=== PATIENT | female | born 1985 | race Caucasian/White ===

== ENCOUNTER 2018-05-16 09:18 | Emergency (ER) | payer OTHER ==
[~2018-05-16] VITALS: Ht 175.3 cm; Wt 84.4 kg
[2018-05-16 09:30] VITALS: BP 124/68
--- NOTE | 2018-05-16 10:27 | RAD ---
Three-view right foot and three-view right ankle dated 05/16/2018. No comparison available. CLINICAL INDICATION: Pain after injury. FINDINGS: Three-view right ankle show normal bony alignment. No displaced fracture. No acute osseous or articular abnormality. Talar dome is intact. 3 views of the right foot show normal bony alignment. No displaced fracture. There is shortening of the fourth metatarsal. No periostitis or bone destruction. IMPRESSION: 1. No acute radiographic abnormality. 2. 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 Consider Down syndrome or Miller's syndrome. Pseudohypoparathyroidism, Allbright syndrome or dysplasia are other considerations. Electronically signed by: Karlo Awad MD (05/16/2018 10:24 AM) [facility]
[2018-05-16] MEDS ORDERED: IBUP-1007 PO (10:52)
--- NOTE | 2018-05-16 10:53 | PHYS DOC ---
Past Medical History Past Medical History: No Pertinent History Past Surgical History: Alcohol Use: None Drug Use: None Adult General Chief Complaint Chief Complaint: LOWEREXTREMITY INJURY HPI HPI Patient is a 32 year old female who presents to the ED today complaining of a sharp constant 10 out of 10 right foot and right ankle pain that began yesterday after washer/dryer fell on her foot and ankle, patient states she was moving both washer and dryer when they fell on her. Patient states the pain is worse on flexion and extension of the foot. 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 Patient denies taking anything to relieve her pain. She is in the ED with her caregiver. Review of Systems Review of Systems Constitutional: Denies fever or chills [] Musculoskeletal: Right fourth toe with congenital deformity, no obvious deformity noted on the right foot or ankle. Full passive as well as active range of motion to the right foot ankles and toes. +2 right pedal pulse. Cap refill less than 2 seconds the right toes. Sensation intact to the right foot. Integument: Denies rash or skin lesions [] Neurologic: Denies headache, focal weakness or sensory changes [] All other systems were reviewed and found to be within normal limits, except as documented in this note. Allergies Allergies Allergies Coded Allergies Type Severity Reaction Last Updated Verified latex Allergy Mild Rash 02/04/13 Yes Physical Exam Physical Exam Constitutional: Well developed, well nourished, no acute distress, non-toxic appearance. [] HENT: Normocephalic, atraumatic, bilateral external ears normal, oropharynx moist, no oral exudates, nose normal. [] Eyes: PERRLA, EOMI, conjunctiva normal, no discharge. [] Neck: Normal range of motion, no tenderness, supple, no stridor. [] Cardiovascular:Heart rate regular rhythm, no murmur [] Lungs & Thorax: Bilateral breath sounds clear to auscultation [] Abdomen: Bowel sounds normal, soft, no tenderness, no masses, no pulsatile masses. [] Skin: Warm, dry, no erythema, no rash. [] Back: No tenderness, no CVA tenderness. [] Extremities: No tenderness, no cyanosis, no clubbing, ROM intact, no edema. [] Neurologic: Alert and oriented X 3, normal motor function, normal sensory function, no focal deficits noted. [] Psychologic: Affect normal, judgement normal, mood normal. [] Current Patient Data Vital Signs Vital Signs Date Time Temp Pulse Resp B/P (MAP) Pulse Ox O2 Delivery O2 Flow Rate FiO2 05/16/18 09:30 98.6 80 18 124/68 (86) 99 Room Air 98.6 EKG EKG [] Radiology/Procedures Radiology/Procedures []PROCEDURE: ANKLE RIGHT 3V Three-view right foot and three-view right ankle dated 05/16/2018. No comparison available. CLINICAL INDICATION: Pain after injury. FINDINGS: Three-view right ankle show normal bony alignment. No displaced fracture. No acute osseous or articular abnormality. Talar dome is intact. 3 views of the right foot show normal bony alignment. No displaced fracture. There is shortening of the fourth metatarsal. No periostitis or bone destruction. IMPRESSION: 1. No acute radiographic abnormality. 2. 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 Consider Down syndrome or Miller's syndrome. Pseudohypoparathyroidism, Allbright syndrome or dysplasia are other considerations. Electronically signed by: Karlo Awad MD (05/16/2018 10:24 AM) [facility] DICTATED and SIGNED BY: KARLO AWAD MD DATE: 05/16/18 1024 Course & Med Decision Making Course & Med Decision Making Pertinent Labs and Imaging studies reviewed. (See chart for details) This is a 32-year-old female patient presenting to the ED today with right foot/ ankle contusion after washing and drawer stress trying to move yesterday fell on her foot and ankle. Right foot and right ankle x-rays interpreted by radiologist were negative for any acute findings. Patient was discharged to home. Ice elevation encouraged. Tylenol or Motrin for pain. Follow-up with orthopedic doctor in one week if symptoms continue. Dragon Disclaimer Dragon Disclaimer This electronic medical record was generated, in whole or in part, using a voice recognition dictation system. Departure Departure Impression: Primary Impression: Contusion of right foot Additional Impression: Contusion of right ankle Disposition: HOME, SELF-CARE Condition: STABLE Referrals: VIVIAN HERNANDEZ MD (PCP) YAEL SHANKS MD Follow-up in 1-2 weeks Patient Instructions: Contusion, [id number] Additional Instructions: You were evaluated in the emergency room for right foot and right ankle pain. Your X-rays of the right foot and ankle were negative for any acute findings. Take Tylenol/Motrin for pain, ice elevate the extremity. Follow-up with your own doctor or the provided orthopedic doctor in 1-2 weeks if pain persist. Scripts Ibuprofen (IBUPROFEN) 600 Mg Tablet 600 MG PO PRN Q6HRS PRN for INFLAMMATION, #20 TAB Prov: BOLIVAR EVERETT APRN 05/16/18 Problem Qualifiers Primary Impression: Contusion of right foot Encounter type: initial encounter Qualified Codes: S90.31XA - Contusion of right foot, initial encounter Additional Impression: Contusion of right ankle Encounter type: initial encounter Qualified Codes: S90.01XA - Contusion of right ankle, initial encounter BOLIVAR EVERETT APRN May 16, 2018 10:52
== END 2018-05-16 11:03 | disposition home or self-care (01) ==
LOC: ER 09:18
DX: S90.01XA Contusion of right ankle, initial encounter (principal); S90.31XA Contusion of right foot, initial encounter; Z91.040 Latex allergy status; W20.8XXA Other cause of strike by thrown, projected or falling object, initial encounter; Y93.89 Activity, other specified; Y92.89 Other specified places as the place of occurrence of the external cause; Y99.8 Other external cause status
CPT/HCPCS: 73610; 73630; 99283

== ENCOUNTER 2018-06-27 12:21 | Emergency (ER) | payer OTHER ==
[~2018-06-27] VITALS: Ht 160 cm; Wt 82.6 kg
[~2018-06-27 12:21] MED LIST: IBUP-1007 PO
[2018-06-27 12:51] VITALS: BP 111/73
[2018-06-27] MEDS ORDERED: DIPH25CA58 PO (13:26)
--- NOTE | 2018-06-27 13:26 | PHYS DOC ---
Past Medical History Past Medical History: Other Additional Past Medical Histor: seasonal allergies (BASHIR FOY APRN) Past Surgical History: (BASHIR FOY APRN) Alcohol Use: None Drug Use: None (BASHIR FOY APRN) Adult General Chief Complaint Chief Complaint: OTHER COMPLAINTS [facility] Patient is a 32 year old female presents for evaluation of sneezing since driving past a house that was having the grass cut approximately 3 hours ago. She reports took a Zyrtec 1 hour ago but continues to sneeze. She denies shortness of breath or other concerns. She noticed that she has a history of seasonal allergies, especially to grass. (BASHIR FOY APRN) Review of Systems Review of Systems Constitutional: Denies fever or chills [] Eyes: Denies change in visual acuity, redness, or eye pain [] HENT: Denies nasal congestion or sore throat, +SNEEZING [] Respiratory: Denies cough or shortness of breath [] Cardiovascular: No additional information not addressed in HPI [] GI: Denies abdominal pain, nausea, vomiting, bloody stools or diarrhea [] : Denies dysuria or hematuria [] Musculoskeletal: Denies back pain or joint pain [] Integument: Denies rash or skin lesions [] Neurologic: Denies headache, focal weakness or sensory changes [] Endocrine: Denies polyuria or polydipsia [] All other systems were reviewed and found to be within normal limits, except as documented in this note. (BASHIR FOY APRN) Allergies Allergies Allergies Coded Allergies Type Severity Reaction Last Updated Verified latex Allergy Mild Rash 02/04/13 Yes (KEL LOUIE MD) Physical Exam Physical Exam Constitutional: Well developed, well nourished, no acute distress, non-toxic appearance. [] HENT: Normocephalic, atraumatic, bilateral external ears normal, oropharynx moist, no oral exudates, nose normal. [] Eyes: PERRLA, EOMI, conjunctiva normal, no discharge. [] Cardiovascular:Heart rate regular rhythm, no murmur [] Lungs & Thorax: Bilateral breath sounds clear to auscultation [] Skin: Warm, dry, no erythema, no rash. [] Neurologic: Alert and oriented X 3, normal motor function, normal sensory function, no focal deficits noted. [] Psychologic: Affect normal, judgement normal, mood normal. [] (BASHIR FOY APRN) Current Patient Data Vital Signs Vital Signs Date Time Temp Pulse Resp B/P (MAP) Pulse Ox O2 Delivery O2 Flow Rate FiO2 06/27/18 12:51 97.7 72 18 111/73 (86) 100 Room Air 97.7 (KEL LOUIE MD) EKG EKG [] (BASHIR FOY APRN) Radiology/Procedures Radiology/Procedures [] (BASHIR FOY APRN) Course & Med Decision Making Course & Med Decision Making Pertinent Labs and Imaging studies reviewed. (See chart for details) [Recommend taking Benadryl, continue Zyrtec daily for seasonal allergies. Follow-up with primary care doctor in 2-3 days.] (BASHIR FOY APRN) Course & Med Decision Making I was available for consultation regarding this patient's. I was not involved and I did not examine the pt unless otherwise specified. (KEL LOUIE MD) Dragon Disclaimer Dragon Disclaimer This electronic medical record was generated, in whole or in part, using a voice recognition dictation system. (BASHIR FOY APRN) Departure Departure Impression: Primary Impression: Allergic rhinitis Disposition: 01 HOME, SELF-CARE Condition: STABLE Referrals: VIVIAN HERNANDEZ MD (PCP) Patient Instructions: Allergic Rhinitis Scripts Diphenhydramine Hcl (BENADRYL) 25 Mg Capsule 25 MG PO Q8HRS PRN for ALLERGIES, #10 CAP 0 Refills Prov: BASHIR FOY APRN 06/27/18 Problem Qualifiers Primary Impression: Allergic rhinitis Allergic rhinitis trigger: other Allergic rhinitis seasonality: seasonal Qualified Codes: J30.89 - Other allergic rhinitis BASHIR FOY APRN Jun 27, 2018 13:26 KEL LOUIE MD Jun 27, 2018 17:29
== END 2018-06-27 13:38 | disposition home or self-care (01) ==
LOC: ER 12:21
DX: J30.89 Other allergic rhinitis (principal); Z91.040 Latex allergy status
CPT/HCPCS: 99283

== ENCOUNTER 2018-07-03 13:25 | Emergency (ER) | payer OTHER ==
[~2018-07-03] VITALS: Ht 160 cm; Wt 80.1 kg
[~2018-07-03 13:25] MED LIST changes: +DIPH25CA58 PO
[2018-07-03 13:58] VITALS: BP 126/61
[2018-07-03] MEDS ORDERED: EPIPEN 2-P0.3 MG/0.3 IJ (13:59)
[2018-07-03] MEDS ORDERED: PRED50TA PO (13:59)
[2018-07-03] MEDS ORDERED: predniSONE 10 MG TABLET PO ONE (14:00)
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
== END 2018-07-03 14:29 | disposition home or self-care (01) ==
LOC: ER 13:25
DX: T78.49XA Other allergy, initial encounter (principal); Z91.013 Allergy to seafood; Z91.040 Latex allergy status
CPT/HCPCS: 99284; J7512

== ENCOUNTER 2018-08-02 09:36 | Emergency (ER) | payer OTHER ==
[~2018-08-02] VITALS: Ht 167.6 cm; Wt 78.0 kg
[~2018-08-02 09:36] MED LIST changes: +EPIPEN 2-P0.3 MG/0.3 IJ; +PRED50TA PO
[2018-08-02] MEDS ORDERED: IV NORMAL SALINE 1000ML BAG 1,000 ML IV SCH (10:00)
--- NOTE | 2018-08-02 10:07 | PHYS DOC ---
Past Medical History Past Medical History: Other Additional Past Medical Histor: hypoglycemia Past Surgical History: Alcohol Use: None Drug Use: None Adult General Chief Complaint Chief Complaint: ABDOMINAL PAIN HPI HPI Patient is a 32-year-old female who presents to the emergency department for evaluation of left flank and lower abdominal pain, which has been present for the past 3-4 days. She has had nausea, and vomited once this morning, without hematemesis. She has not had any diarrhea, dysuria, hematuria, vaginal bleeding, or discharge. She denies possibility of STD, and declines evaluation for such today. She has not had any fevers or chills. There are no alleviating, or exa cerbating factors to her symptoms otherwise. Review of Systems Review of Systems Constitutional: Denies fever or chills [] Eyes: Denies change in visual acuity, redness, or eye pain [] HENT: Denies nasal congestion or sore throat [] Respiratory: Denies cough or shortness of breath [] Cardiovascular: The patient denies any shortness of breath, chest pain, pa lpitations, or orthopnea [] GI:No additional information not addressed in HPI [] : Denies dysuria or hematuria [] Musculoskeletal: Denies back pain or joint pain [] Integument: Denies rash or skin lesions [] Neurologic: Denies headache, focal weakness or sensory changes [] Endocrine: Denies polyuria or polydipsia [] All other systems were reviewed and found to be within normal limits, except as documented in this note. Current Medications Current Medications Current Medications Medications (Trade) Dose Ordered Sig/Norman Start Time Stop Time Status Last Admin Dose Admin Ketorolac Tromethamine (Toradol 30mg Vial) 30 mg 1X ONCE 08/02/18 10:30 08/02/18 10:31 DC 08/02/18 10:29 30 MG Ondansetron HCl (Zofran) 4 mg 1X ONCE 08/02/18 10:30 08/02/18 10:31 DC 08/02/18 10:29 4 MG Sodium Chloride 1,000 ml @ 1,000 mls/hr Q1H 08/02/18 10:00 08/02/18 10:59 DC 08/02/18 10:29 1,000 MLS/HR Allergies Allergies Allergies Coded Allergies Type Severity Reaction Last Updated Verified shellfish derived Allergy Severe anaphylaxis 07/03/18 Yes latex Allergy Intermediate Rash 07/03/18 Yes Physical Exam Physical Exam PHYSICAL EXAM: CONSTITUTIONAL: Well developed, well nourished HEAD: normocephalic, atraumatic EENT: PERRL, EOMI. Conjunctivae normal color, sclerae non-icteric; moist mucous membranes. NECK: Supple, non-tender; no meningismus. LUNGS: Lungs CTA, breathing even and unlabored. Normal air movement. HEART: Regular rate and rhythm, no murmur CHEST: No deformity; non-tender ABDOMEN: The abdomen is soft, there is mild tenderness to palpation in the abdomen on the left mid and lower abdomen, without rebound or guarding. The remainder the abdomen is soft and non-tender, no masses or bruits. EXTREM: Normal ROM; no deformity, no calf tenderness. Normal pulses palpable in all extremities. There is no pedal edema. SKIN: No rash; no diaphoresis NEURO: Alert; normal speech and cognition; CN's grossly intact; strength grossly intact without focal deficit. BACK: There is moderate left-sided CVA TTP. Current Patient Data Vital Signs Vital Signs Date Time Temp Pulse Resp B/P (MAP) Pulse Ox O2 Delivery O2 Flow Rate FiO2 08/02/18 11:55 79 16 113/62 (79) 100 Room Air 08/02/18 10:51 98.9 98.9 Lab Values Laboratory Tests Test 08/02/18 10:15 08/02/18 11:34 White Blood Count 7.5 x10^3/uL (4.0-11.0) Red Blood Count 3.88 x10^6/uL (3.50-5.40) Hemoglobin 8.9 g/dL (12.0-15.5) L Hematocrit 28.3 % (36.0-47.0) L Mean Corpuscular Volume 73 fL (79-100) L Mean Corpuscular Hemoglobin 23 pg (25-35) L Mean Corpuscular Hemoglobin Concent 32 g/dL (31-37) Red Cell Distribution Width 18.5 % (11.5-14.5) H Platelet Count 208 x10^3/uL (140-400) Neutrophils (%) (Auto) 79 % (31-73) H Lymphocytes (%) (Auto) 11 % (24-48) L Monocytes (%) (Auto) 8 % (0-9) Eosinophils (%) (Auto) 1 % (0-3) Basophils (%) (Auto) 1 % (0-3) Neutrophils # (Auto) 5.9 x10^3uL (1.8-7.7) Lymphocytes # (Auto) 0.9 x10^3/uL (1.0-4.8) L Monocytes # (Auto) 0.6 x10^3/uL (0.0-1.1) Eosinophils # (Auto) 0.0 x10^3/uL (0.0-0.7) Basophils # (Auto) 0.1 x10^3/uL (0.0-0.2) Urine Color Yellow Urine Clarity Clear Urine pH 8.0 Urine Specific Sibley 1.010 Urine Protein Negative mg/dL (NEG-TRACE) Urine Glucose (UA) Negative mg/dL (NEG) Urine Ketones (Stick) Negative mg/dL (NEG) Urine Blood Negative (NEG) Urine Nitrite Negative (NEG) Urine Bilirubin Negative (NEG) Urine Urobilinogen Dipstick 1.0 mg/dL (0.2 mg/dL) Urine Leukocyte Esterase Moderate (NEG) Urine RBC 0 /HPF (0-2) Urine WBC Occ /HPF (0-4) Urine Bacteria 0 /HPF (0-FEW) Sodium Level 140 mmol/L (136-145) Potassium Level 3.7 mmol/L (3.5-5.1) Chloride Level 103 mmol/L (98-107) Carbon Dioxide Level 23 mmol/L (21-32) Anion Gap 14 (6-14) Blood Urea Nitrogen 8 mg/dL (7-20) Creatinine 0.9 mg/dL (0.6-1.0) Estimated GFR (Cockcroft-Gault) 73.0 BUN/Creatinine Ratio 9 (6-20) Glucose Level 97 mg/dL (70-99) Calcium Level 9.2 mg/dL (8.5-10.1) Total Bilirubin 0.3 mg/dL (0.2-1.0) Aspartate Amino Transferase (AST) 14 U/L (15-37) L Alanine Aminotransferase (ALT) 19 U/L (14-59) Alkaline Phosphatase 75 U/L (46-116) Total Protein 7.9 g/dL (6.4-8.2) Albumin 3.6 g/dL (3.4-5.0) Albumin/Globulin Ratio 0.8 (1.0-1.7) L Lipase 73 U/L (73-393) Urine Test Negative (NEG) Laboratory Tests 08/02/18 10:15 Laboratory Tests 08/02/18 10:15 EKG EKG [] Radiology/Procedures Radiology/Procedures PROCEDURE: CT ABDOMEN PELVIS WO CONTRAST CT of the abdomen and pelvis without contrast, 08/02/2018: HISTORY: Left flank and lower abdominal pain Noncontrast scans were obtained utilizing the renal stone protocol. No intrarenal calculi are identified. The renal collecting systems and ureters are not dilated. No ureteral calculus is identified. The urinary bladder is unremarkable. The unopacified liver shows no abnormality. No gallbladder abnormality is detected. The pancreas is unremarkable. The spleen shows no abnormality. The abdominal aorta is unremarkable. No abdominal or pelvic adenopathy is seen. Surgical clips in the pelvis are most likely secondary to tubal ligation surgery. No abnormal pelvic mass or fluid collection is seen. The bowel loops are not dilated. The appendix is visualized and shows no abnormality. No free fluid or free air is evident in the abdomen or pelvis. IMPRESSION: No urinary tract calculi are identified. [] Course & Med Decision Making Course & Med Decision Making Pertinent Labs and Imaging studies reviewed. (See chart for details) []12:50 PM:Patient remains stable. I discussed test results, the need for close follow-up, and return precautions. The patient continues to decline pelvic exam I did discuss importance of [facility]IPMAN follow-up if she has persistent pain for pelvic evaluation, although does not appear that this is likely the source of the patient's symptoms. She states she does do a lot of heavy lifting at work and she does think her back pain might be related to musculoskeletal causes and we will try therapeutic trial of NSAIDs and muscle relaxer Spencer Disclaimer [place]acon Disclaimer This electronic medical record was generated, in whole or in part, using a voice recognition dictation system. Departure Departure Impression: Primary Impression: Abdominal pain Additional Impression: Low back pain Disposition: 01 HOME, SELF-CARE Condition: STABLE Referrals: VIVIAN HERNANDEZ MD (PCP) Patient Instructions: Abdominal Pain, Back Pain, Adult Additional Instructions: Applying a heating pad to the affected area may help improve your symptoms. The prescribed medications may cause drowsiness-use caution while taking. Scripts Diclofenac Sodium (DICLOFENAC SODIUM) 50 Mg Tablet.dr 1 TAB PO BID, #20 TAB 0 Refills Prov: CHRISTINE MAGALLON MD 08/02/18 Cyclobenzaprine Hcl (CYCLOBENZAPRINE HCL) 10 Mg Tablet 1 TAB PO TID PRN for PAIN, #30 TAB Prov: CHRISTINE MAGALLON MD 08/02/18 Problem Qualifiers CHRISTINE MAGALLON MD August 02, 2018 10:07
[2018-08-02] MEDS ORDERED: ONDANSETRON PF 4 MG/2 ML VIAL. IV ONE (10:30)
[2018-08-02] MEDS ORDERED: KETOROLAC 30 MG/ML VIAL. IV ONE (10:30)
[2018-08-02 10:34] LABS: BILIRUBIN,URINE NEGATIVE (NEG); CLARITY,URINE CLEAR; COLOR,URINE YELLOW; NITRITE,URINE NEGATIVE (NEG); PROTEIN,URINE NEGATIVE (NEG-TRACE)
[2018-08-02 10:39] LABS: BASO # 0.1 x10^3/uL (0.0-0.2); BASO % 1 % (0-3); EOS % 1 % (0-3); HEMATOCRIT 28.3 % (36.0-47.0); HEMOGLOBIN 8.9 g/dL (12.0-15.5); LYMPH # 0.9 x10^3/uL (1.0-4.8); LYMPH % 11 % (24-48); MEAN CORPUSCULAR HEMOGLOBIN 23 pg (25-35); MEAN CORPUSCULAR HGB CONC 32 g/dL (31-37); MEAN CORPUSCULAR VOLUME 73 fL (79-100); MONO # 0.6 x10^3/uL (0.0-1.1); MONO % 8 % (0-9); NEUT # 5.9 x10^3uL (1.8-7.7); NEUT % 79 % (31-73); PLATELET COUNT 208 x10^3/uL (140-400); RED BLOOD COUNT 3.88 x10^6/uL (3.50-5.40); RED CELL DISTRIBUTION WIDTH 18.5 % (11.5-14.5); WHITE BLOOD COUNT 7.5 x10^3/uL (4.0-11.0)
[2018-08-02 10:41] LABS: BACTERIA,URINE 0 /HPF (0-FEW); RBC,URINE 0 /HPF (0-2); WBC,URINE OCC /HPF (0-4)
[2018-08-02 10:43] LABS: CALCIUM 9.2 mg/dL (8.5-10.1); CREATININE 0.9 mg/dL (0.6-1.0); POTASSIUM 3.7 mmol/L (3.5-5.1)
[2018-08-02 10:48] LABS: ALBUMIN 3.6 g/dL (3.4-5.0); ALBUMIN/GLOBULIN RATIO 0.8 (1.0-1.7); TOTAL BILIRUBIN 0.3 mg/dL (0.2-1.0); TOTAL PROTEIN 7.9 g/dL (6.4-8.2)
[2018-08-02 11:40] LABS: U PREG PATIENT NEGATIVE (NEG)
--- NOTE | 2018-08-02 12:33 | RAD ---
CT of the abdomen and pelvis without contrast, 08/02/2018: HISTORY: Left flank and lower abdominal pain Noncontrast scans were obtained utilizing the renal stone protocol. No intrarenal calculi are identified. The renal collecting systems and ureters are not dilated. No ureteral calculus is identified. The urinary bladder is unremarkable. The unopacified liver shows no abnormality. No gallbladder abnormality is detected. The pancreas is unremarkable. The spleen shows no abnormality. The abdominal aorta is unremarkable. No abdominal or pelvic adenopathy is seen. Surgical clips in the pelvis are most likely secondary to tubal ligation surgery. No abnormal pelvic mass or fluid collection is seen. The bowel loops are not dilated. The appendix is visualized and shows no abnormality. No free fluid or free air is evident in the abdomen or pelvis. IMPRESSION: No urinary tract calculi are identified. PQRS Compliance Statement: One or more of the following individualized dose reduction techniques were utilized for this examination: 1. Automated exposure control 2. Adjustment of the mA and/or kV according to patient size 3. Use of iterative reconstruction technique Electronically signed by: Juvenal Wyatt MD (08/02/2018 12:30 PM) [facility]
[2018-08-02 12:50] VITALS: BP 110/74
[2018-08-02] MEDS ORDERED: DICL50TA4 PO (12:53)
[2018-08-02] MEDS ORDERED: CYCL10TA2 PO (12:53)
--- NOTE | 2018-08-04 10:09 | NUR ---
Late entry made to Medical Record. IV Stop time transcribed from eMAR to IV spreadsheet
== END 2018-08-02 13:15 | disposition home or self-care (01) ==
LOC: ER 09:36
DX: R10.32 Left lower quadrant pain (principal); M54.5 Low back pain; R11.2 Nausea with vomiting, unspecified; Z91.040 Latex allergy status; Z91.013 Allergy to seafood
CPT/HCPCS: 36415; 74176; 80053; 81001; 81025; 83690; 85025; 96361; 96374; 96375; 99285; J1885; J2405; J7030

== ENCOUNTER 2019-01-26 12:14 | Emergency (ER) | payer OTHER ==
[~2019-01-26] VITALS: Ht 157.5 cm; Wt 84.8 kg
[~2019-01-26 12:14] MED LIST changes: +CYCL10TA2 PO; +DICL50TA4 PO
[2019-01-26 13:04] VITALS: BP 140/82
[2019-01-26] MEDS ORDERED: ORPH100T PO (13:41)
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
== END 2019-01-26 13:48 | disposition home or self-care (01) ==
LOC: ER 12:14
DX: M25.511 Pain in right shoulder (principal); G89.11 Acute pain due to trauma; V43.63XA Car passenger injured in collision with pick-up truck in traffic accident, initial encounter; Y93.89 Activity, other specified; Y92.415 Exit ramp or entrance ramp of street or highway as the place of occurrence of the external cause; Y99.8 Other external cause status
CPT/HCPCS: 81025; 99283

== ENCOUNTER 2020-02-20 08:58 | Emergency (ER) | payer OTHER ==
[~2020-02-20] VITALS: Ht 165.1 cm; Wt 80.0 kg
[~2020-02-20 08:58] MED LIST changes: +ORPH100T PO
[2020-02-20] MEDS ORDERED: FAMOTIDINE 20 MG/2 ML VIAL IVP ONE (09:00)
[2020-02-20] MEDS ORDERED: DEXAMETHASONE SOD PHOS 4 MG/ML VIAL IVP ONE (09:00)
[2020-02-20] MEDS ORDERED: diphenhydrAMINE 50 MG/ML VIAL IVP ONE (09:00)
[2020-02-20] MEDS ORDERED: PRED20TA PO (09:03)
[2020-02-20] MEDS ORDERED: DIPH25CA58 PO (09:03)
[2020-02-20] MEDS ORDERED: FAMO-63 PO (09:03)
--- NOTE | 2020-02-20 09:03 | PHYS DOC ---
Past Medical History Past Medical History: No Pertinent History, Other Additional Past Medical Histor: hypoglycemia Past Surgical History: Smoking Status: Never Smoker Alcohol Use: None Drug Use: None General Adult EDM: Chief Complaint: Itching HPI: HPI: Patient is a 34 year old female who is brought to the ED by EMS for itching and possible allergic reaction. Pt reports she ate a pumpkin spice donut this morning at work after which she immediately experienced itching starting at her neck that spread to her face, arms, and now legs. She has not previously had any reactions to pumpkin spice. She was given 25mg Benadryl by EMS in route to the hospital but reports no improvement with itching on arrival. She admits to feeling increased anxiety, with associated chest pressure, but denies shortness of breath. Her only known allergies are latex and shellfish. Review of Systems: Review of Systems: Constitutional: Denies fever or chills Eyes: Denies redness or eye pain HENT: Denies nasal congestion or sore throat Respiratory: Denies cough or shortness of breath Cardiovascular: +chest pain. Denies palpitations GI: Denies abdominal pain, nausea, or vomiting : Denies dysuria or hematuria Musculoskeletal: Denies back pain or joint pain Integument: +Itching. Denies skin lesions Neurologic: Denies headache, focal weakness or sensory changes. Complete systems were reviewed and found to be within normal limits, except as documented in this note. Allergies: Allergies: Allergies Coded Allergies Type Severity Reaction Last Updated Verified shellfish derived Allergy Severe anaphylaxis 07/03/18 Yes latex Allergy Intermediate Rash 07/03/18 Yes Physical Exam: PE: Constitutional: Well developed, non-toxic appearance, tearful, anxious HENT: Normocephalic, atraumatic, no tongue swelling or airway compromise Neck: Normal range of motion, no tenderness, supple Lungs & Thorax: No respiratory distress, equal chest rise and fall, no stridor Abdomen: Soft, no tenderness Skin: Warm, dry, no erythema, excoriations on neck and forearms. Psychologic: Affect labile, judgment normal, anxious Course & Med Decision Making: Course & Med Decision Making Pt is a previously healthy 34 year old female who was brought to the ED via EMS for pruritus after consuming a pumpkin spice donut. Likely allergic reaction to pumpkin spice. No airway compromise, stridor, or respiratory distress on physical exam. Additional 25mg of Benadryl given to previous 25mg in route (total of 50mg Benadryl) for itching and allergies. Dexamethasone given to help calm inflammation and itching. Patient stable for discharge with outpatient follow-up with PCP. Discussed findings and plan with patient, who acknowledges understanding and agreement. Spencer Disclaimer: Spencer Disclaimer: This electronic medical record was generated, in whole or in part, using a voice recognition dictation system. Departure Departure Impression: Primary Impression: Allergic reaction Qualified Codes: T78.40XA - Allergy, unspecified, initial encounter Disposition: DC HOME SELF CARE/HOMELESS Condition: STABLE Referrals: NO PCP (PCP) Patient Instructions: Food Allergy, [id number] Scripts Diphenhydramine Hcl (BENADRYL) 25 Mg Capsule 25 MG PO Q4-6HRS PRN for ITCHING, #30 CAP Prov: CLARITZA MAHARAJ DO 02/20/20 Famotidine (PEPCID) 20 Mg Tablet 20 MG PO BID for 5 Days, #10 TAB Prov: CLARITZA MAHARAJ DO 02/20/20 Prednisone (PREDNISONE) 20 Mg Tablet 2 TAB PO DAILY, #8 TAB Start this prescription tomorrow, 02/21/2020 Prov: CLARITZA MAHARAJ DO 02/20/20 CLARITZA MAHARAJ DO Feb 20, 2020 09:03
[2020-02-20 09:55] VITALS: BP 112/70
== END 2020-02-20 10:30 | disposition home or self-care (01) ==
LOC: ER 08:58
DX: T78.1XXA Other adverse food reactions, not elsewhere classified, initial encounter (principal); L29.8 Other pruritus; Z91.040 Latex allergy status; Z91.013 Allergy to seafood; X58.XXXA Exposure to other specified factors, initial encounter
CPT/HCPCS: 96374; 96375; 99284; J1100; J1200; J3490

== ENCOUNTER 2020-03-09 15:54 | Emergency (ER) | payer OTHER ==
[~2020-03-09] VITALS: Ht 154.9 cm; Wt 104.0 kg
[~2020-03-09 15:54] MED LIST changes: +FAMO-63 PO; +PRED20TA PO
[2020-03-09] MEDS ORDERED: NAPR-683 PO (20:15)
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
[2020-03-09 20:53] VITALS: BP 149/101
== END 2020-03-09 20:55 | disposition home or self-care (01) ==
LOC: ER 15:54
DX: S93.492A Sprain of other ligament of left ankle, initial encounter (principal); Z98.890 Other specified postprocedural states; Z91.013 Allergy to seafood; Z91.040 Latex allergy status; X58.XXXA Exposure to other specified factors, initial encounter; Y93.39 Activity, other involving climbing, rappelling and jumping off; Y92.89 Other specified places as the place of occurrence of the external cause; Y99.8 Other external cause status
CPT/HCPCS: 73610; 99283